=== PATIENT | female | born 2000 | race Caucasian/White ===

== ENCOUNTER 2021-04-26 21:58 | Emergency (ER) | payer OTHER ==
--- NOTE | 2021-04-26 22:20 | NUR ---
PATIENT CALL TO TRIAGE , NO RESPONSE PATIENT LEFT WITHOUT BEING SEEN BY DR. BOYCE. NO FURTHER CARE PROVIDED FOR PATIENT.
--- NOTE | 2021-04-26 22:25 | NUR ---
CALLED FOR THHE SECOND TIME NO RESPONSE
--- NOTE | 2021-04-26 22:35 | NUR ---
CALLED FOR THE THIRD TIME NO RESPONSE.
== END 2021-04-26 22:20 | disposition left against medical advice (07) ==
LOC: MED 21:58
DX: O20.8 Other hemorrhage in early pregnancy (principal); Z53.21 Procedure and treatment not carried out due to patient leaving prior to being seen by health care provider; Z3A.01 Less than 8 weeks gestation of pregnancy